=== PATIENT | female | born 1930 | race Caucasian/White ===

== ENCOUNTER 2016-06-21 10:43 | Day surgery (SDC) | payer MEDICARE, OTHER ==
--- NOTE | ~2016-06-21 | EGD ---
EGD REPORT [facility] [address] 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 Procedure: Pre-Anesthesia Assessment: - ASA Grade Assessment: IV - A patient with severe systemic disease that is a constant threat to life. After obtaining informed consent, the endoscope was passed under direct vision. Throughout the procedure, the patient's blood pressure, pulse, and oxygen saturations were monitored continuously. The GIF [id number] was introduced through the mouth, and advanced to the third part of duodenum. The upper GI endoscopy was accomplished without difficulty. The patient tolerated the procedure well. Findings: The esophagus and gastroesophageal junction were examined with white light and narrow band imaging (NBI) from a forward view and retroflexed position. There were esophageal mucosal changes suspicious for short-segment Whitten's esophagus. No visible abnormalities were present. The maximum longitudinal extent of these esophageal mucosal changes was 0.5 cm in length. Biopsies were taken with a cold forceps for histology. The examined esophagus was moderately tortuous. No other significant abnormalities were identified in a careful examination of the esophagus. A guidewire was placed and the scope was withdrawn. Dilation was performed in the entire esophagus with a Savary dilator with no resistance at 54 Fr. There is no endoscopic evidence of areas of erosion, ulcerations or varices in the entire esophagus. Multiple small sessile polyps with no stigmata of recent bleeding were found on the greater curvature of the stomach. Biopsies were taken with a cold forceps for histology. Patchy mildly erythematous mucosa which appeared somewhat atrophic without bleeding was found in the gastric body and fundus/cardia. Biopsies were taken with a cold forceps for histology. EGD REPORT [place] [id number] [place]. [address] NAME: ANTONIETA MELENDREZ : [birth year] STATUS : REG [facility] [place] PAT#: [id number] AGE: 86 ADM/REG DATE : 06/21/16 MR#: [id number] REPORT SERV DATE: 06/21/16 DICTATED BY: DATE: REPORT STATUS : Draft TRANSCRIBED BY: [employer] DATE: 06/21/16 No other significant abnormalities were identified in a careful examination of the stomach. There is no endoscopic evidence of ulceration, varices or mass in the entire examined stomach. The examined duodenum was normal. There is no endoscopic evidence of mucosal abnormalities, ulceration or angioectasia in the entire examined duodenum. The cardia and gastric fundus were normal on retroflexion. Impression: - Esophageal mucosal changes suspicious for short-segment Whitten's esophagus. Biopsied. - Tortuous esophagus. - Multiple gastric polyps. Biopsied. - Erythematous, atrophic appearing mucosa in the stomach. Biopsied. - Normal examined duodenum. - Dilation attempted in the entire esophagus. Successful. Recommendation: - Patient has a contact number available for emergencies. The signs and symptoms of potential delayed complications were discussed with the patient. Return to normal activities tomorrow. Written discharge instructions were provided to the patient. - Return to previous diet. - Discharge patient to home. - Continue present medications. - Await pathology results. - Further surveillance not recommended. Procedure Code(s): --- Professional --- 82737, Esophagogastroduodenoscopy, flexible, transoral; with insertion of guide wire followed by passage of dilator(s) through esophagus over guide wire 72709, Esophagogastroduodenoscopy, flexible, transoral; with biopsy, single or multiple Diagnosis Code(s): --- Professional --- K22.70, Whitten's esophagus without dysplasia Q39.9, Congenital malformation of esophagus, unspecified K31.7, Polyp of stomach and duodenum K31.9, Disease of stomach and duodenum, unspecified R13.10, Dysphagia, unspecified CPT copyright 2013 [employer]. All rights reserved. The codes documented in this report are preliminary and upon ship's master review may EGD REPORT [facility] [address] [address] NAME: ANTONIETA MELENDREZ : [birth year] STATUS : REG [facility] [place] PAT#: [id number] AGE: 86 ADM/REG DATE : 06/21/16 MR#: [id number] REPORT SERV DATE: 06/21/16 DICTATED BY: DATE: REPORT STATUS : Draft TRANSCRIBED BY: [employer] DATE: 06/21/16 be revised to meet current compliance requirements. BIN MUNIZ MD 06/21/2016 12:12 PM This report has been signed electronically. Number of Addenda: 0 Note Initiated On: 06/21/2016 11:45 AM Scope Withdrawal Time 0 hours 0 minutes 0 seconds [address] [address]
[~2016-06-21 10:43] MED LIST: *HOMEMEDS; *UNABLE1; ACCU20 PO; ADVAIR250 INH; ALPHA LIPOIC PO; BONIVA3I IV; BOSWELLIA PO; C2 PO; CHLORTHALID50 MG PO; CHLORTHALIDONE PO; CLARIT10 PO; CO Q-10 PO; COMBIVENT INH; COUMADIN4 MG PO; CYMBALTA20 PO; D 5000 PO; DULERA 200 MCG/13 GM INH; FLONASE NAS; FLORASTOR250 MG PO; JANTOVEN PO; JANTOVEN1 MG PO; JANTOVEN2 MG PO; JANTOVEN2.5 MG PO; JANTOVEN3 MG PO; JANTOVEN4 MG PO; LEVAQUIN750 MG PO; MAGNESIUM OTC PO; MAGNESIUM PO; MAGOX4 PO; MAX25 PO; MSM PO; MULTIPLE VIT PO; MULTIVIT/MIN PO; MVI PO; NEUR300 PO; NORCO1 TA2 PO; P1 PO; P10 PO; P20 PO; PRESERVISION A1 EAC1 PO; PROAIR HFA INH; PROTONIX PO; PROTONIX20 MG PO; PULMICORT180 MCG INH; RED YEAS1 OR; SAM-E PO; SYMBICORT INH; SYSTANE OP; SYSTANE OPH; TAMIFLU PO; TESS PO; ULTRAM50 PO; VENTOLIN HFA INH; VITAMIN B6 PO; VOLTAREN PO; VOLTAREN1 % TOP; [UNRECOGNIZED DRUG - REMARK] INH
[2016-06-21 11:10] LABS: INTERNATIONAL NORMAL RATI 1.7 UNITS (-)
[2016-06-21 11:11] LABS: PROTIME (NOT ORD) 19.6 SEC (12.0-14.5)
[2016-08-10] MEDS ORDERED: OS500+D PO (09:37)
== END 2016-06-21 23:59 | disposition home or self-care (01) ==
LOC: DMU 10:43
PROVIDERS: Anesthesiology; Internal Medicine Gastroenterology
PROC: 0D748ZZ Dilation of Esophagogastric Junction, Via Natural or Artificial Opening Endoscopic (ICD-10-PCS; 2016-06-21)
PROC: 0DB68ZX Excision of Stomach, Via Natural or Artificial Opening Endoscopic, Diagnostic (ICD-10-PCS; principal; 2016-06-21 12:30)
PROC: 0DB58ZX Excision of Esophagus, Via Natural or Artificial Opening Endoscopic, Diagnostic (ICD-10-PCS; 2016-06-21 12:30)
DX: K20.9 Esophagitis, unspecified (principal); K31.7 Polyp of stomach and duodenum; J45.909 Unspecified asthma, uncomplicated; M79.7 Fibromyalgia; K21.9 Gastro-esophageal reflux disease without esophagitis; F32.9 Major depressive disorder, single episode, unspecified; I10 Essential (primary) hypertension; Z95.0 Presence of cardiac pacemaker; Z88.0 Allergy status to penicillin; Z88.2 Allergy status to sulfonamides; Z88.8 Allergy status to other drugs, medicaments and biological substances; Z91.040 Latex allergy status; Z79.899 Other long term (current) drug therapy; Z79.01 Long term (current) use of anticoagulants; Z98.41 Cataract extraction status, right eye; Z98.42 Cataract extraction status, left eye; Z90.49 Acquired absence of other specified parts of digestive tract; Z90.710 Acquired absence of both cervix and uterus; Z98.890 Other specified postprocedural states
CPT/HCPCS: 85610; 88305